=== PATIENT | female | born 1940 | race Caucasian/White ===

== ENCOUNTER 2017-03-24 16:05 | Emergency (ER) | payer MEDICARE ==
--- NOTE | 2017-03-24 19:36 | RAD ---
HISTORY: 2 weeks of right upper quadrant pain COMPARISONS: None TECHNIQUE: Multiple transverse and longitudinal ultrasound images were obtained of the right upper quadrant. FINDINGS: LIVER: The liver is normal in dimensions and echogenicity. Normal hepatic and portal venous blood flow is duplicated with color flow imaging. There is no gross intrahepatic biliary duct dilatation. GALLBLADDER AND EXTRAHEPATIC BILIARY DUCT: At the nondependent portion of the proximal gallbladder there is a 6 mm echogenic avascular focus that does not appear to be mobile. Otherwise there are no intraluminal filling defects consistent with gallstones are iliac artery sludge. There is no pericholecystic fluid or gallbladder wall thickening. The common bile duct measures a maximum diameter of 8 mm. PANCREAS: The portions of the pancreas not obscured by bowel gas are normal in appearance. RIGHT KIDNEY: Along the superior lateral margin of the right kidney there is a heterogeneously echogenic and avascular structure measuring 4 x 4 0.1 x 4.4 cm. At the medial superior margin of the right kidney there is an avascular and anechoic structure measuring 7.2 x 2.8 x 3.7 cm. The kidney is otherwise normal in size and itself exhibits normal echogenicity. AORTA AND IVC: The visualized portions are normal in appearance and not pathologically dilated. IMPRESSION: 1. SONOGRAPHIC FINDINGS ARE MOST CONSISTENT WITH ADENOMYOMATOSIS OR POLYPS. 2. TOP NORMAL DIAMETER OF THE COMMON BILE DUCT WITHOUT IDENTIFICATION OF GALLSTONES OR ACUTE INFLAMMATORY CHANGE OF THE GALLBLADDER. 3. THERE ARE 2 AVASCULAR STRUCTURES ADJACENT TO THE RIGHT KIDNEY WITH MOSTLY BENIGN SONOGRAPHIC FEATURES. THE ETIOLOGY IS UNCLEAR ON ULTRASOUND.
[2017-03-24] MEDS ORDERED: Ondansetron INJ* 2 MG/ML VIAL IV ONE (19:54)
[2017-03-24] MEDS ORDERED: NS 0.9% 1000 ML* 1,000 ML IV ONE (19:55)
[2017-03-24] MEDS ORDERED: Ketorolac INJ* 30 MG/ML 1 ML VIAL IV PUSH ONE (19:55)
[2017-03-24 19:56] LABS: Hematocrit 45 % (35-47); Hemoglobin 15.2 g/dl (12.0-16.0); Mean Corpuscular HGB Conc 33 g/dl (31-36); Mean Corpuscular Hemoglobin 28 pg (27-31); Mean Corpuscular Volume 84 fL (80-97); Mean Platelet Volume 8 um3 (7.4-10.4); Red Blood Count 5.42 10^6/ul (4.0-5.4); Red Cell Distribution Width 14 % (10.5-15); White Blood Count 14.1 10^3/ul (3.5-10.8)
[2017-03-24 20:13] LABS: BUN/Creatinine Ratio 19.5 (8-20); Calcium 9.3 mg/dL (8.6-10.3); EGFR African American 87.4 (>60); Globulin 3.5 g/dL (2-4); Potassium 3.6 mmol/L (3.5-5.0); Total Bilirubin 0.3 mg/dL (0.2-1.0); Total Protein 7.5 g/dL (6.4-8.9)
[2017-03-24 20:13] LABS: Urine Bacteria Absent (Absent); Urine Bilirubin Negative (Negative); Urine Glucose Negative (Negative); Urine Nitrite Negative (Negative)
--- NOTE | 2017-03-24 21:53 | RAD ---
CLINICAL HISTORY: Right-sided flank pain COMPARISON: None TECHNIQUE: Noncontrast CT examination of the abdomen and pelvis from the lung bases through the initial tuberosities. FINDINGS: VISUALIZED LUNG BASES: There is a small to moderate right lung base pleural effusion. There is compressive atelectasis involving the right lower lobe. ABDOMEN AND PELVIS: Evaluation of the solid organs and vasculature is limited without intravenous contrast. The liver, spleen and pancreas are grossly normal in appearance. The gallbladder is normal. Replacing much of the right adrenal gland is a low-density mass measuring 3.7 x 4.5 cm in the axial plane and 4.2 cm in the cephalocaudal projection. The Hounsfield unit measures under 10 indicating an adenoma versus lipoma. The left kidney is normal in appearance without focal mass, calcification or signs of hydronephrosis. At the lower pole of the right kidney is a 2 mm calcification. There is no significant right-sided hydronephrosis. Evaluation of the gastrointestinal tract is limited without oral contrast. The small and large bowel are not distended.The patient's normal appendix is identified in the right lower quadrant measuring 5 mm in diameter with a small amount of gas in the lumen (coronal image 52). There are scattered diverticula throughout the colon becoming more concentrated at the descending colon and even more so in the rectosigmoid colon. There is no definite colonic wall thickening or pericolonic inflammatory change of the mesenteric fat. Between the right kidney and IVC is a fluid density cyst measuring 3.9 x 4.1 cm in the axial plane and nearly 6 cm in cephalocaudal projection. The origin of this cyst is not clear. Otherwise there is no gross retroperitoneal or mesenteric lymphadenopathy. Uterus is surgically absent. The mildly calcified abdominal aorta and iliac arteries are normal in course and diameter. Degenerative change of the lower thoracic spine includes loss of intervertebral disc height, mild endplate sclerosis and marginal osteophyte formation. Less severe degenerative changes noted at the lower lumbar spine as well.There are no sinister bone lesions. IMPRESSION: 1. Moderate right-sided pleural effusion with compressive atelectasis. 2. There is a low-density 4.5 cm mass replacing much of the right adrenal gland. The low density Hounsfield units measuring less than 10 indicates, but do not prove, a benign process such as adenomyoma or lipoma. If clinically warranted further characterization could be made with either [address] of the abdomen according to the adrenal protocol or with contrast-enhanced MRI of the abdomen. 3. Fluid density cyst between the right kidney and IVC just anterior to the retroperitoneum of unclear origin and with benign CT characteristics. 4. Right lower pole punctate calcification without signs of urinary obstruction. 5. Diverticulosis without acute inflammatory change. 6. Additional chronic, degenerative and postsurgical changes described in body the report unlikely to be directly related to the patient's current presentation.
[2017-03-24] MEDS ORDERED: Ciprofloxacin TAB* 500 MG PO ONE (22:20)
--- NOTE | 2017-03-24 22:26 | ED ---
GI/ HPI - HPI Summary HPI Summary: 76F presents with right sided abdominal pain for 2 weeks. She admits to nausea but denies any vomiting. denies any chest pain or SOB. no fever. no pain with urination, frequency, urgency, hematuria. sates pain is greatest in RUQ but radiates between shoulder blades but also has flank pain. no diarrhea or constipation. has had appendix and uterus removed. ibuprofen has been helping. no history of gallstones. pain is intermittent. - History of Current Complaint Chief Complaint: EDAbdPain Time Seen by Provider: 03/24/17 18:57 Stated Complaint: RT SIDED ABD PAIN/V/N Pain Intensity: 8 - Allergy/Home Medications Allergies/Adverse Reactions: Allergies Allergy/AdvReac Type Severity Reaction Status Date / Time Chlorpromazine Allergy Agitation Verified 03/24/17 16:13 [From Thorazine] PMH/Surg Hx/FS Hx/Imm Hx Endocrine/Hematology History: Denies: Hx Anticoagulant Therapy, Hx Diabetes Cardiovascular History: Reports: Hx Hypertension Infectious Disease History: No Infectious Disease History: Denies: Traveled Outside the [place] in Last 30 Days - Family History Known Family History: Negative: Diabetes - Social History Alcohol Use: Occasionally Substance Use Type: Reports: None Smoking Status (MU): Former Smoker Review of Systems Negative: Fever Negative: Chest Pain Negative: Shortness Of Breath Positive: Abdominal Pain, Nausea. Negative: Vomiting, Diarrhea All Other Systems Reviewed And Are Negative: Yes Physical Exam Triage Information Reviewed: Yes Vital Signs On Initial Exam: Initial Vitals Temp Pulse Resp BP Pulse Ox 98.8 F 85 20 138/110 96 03/24/17 16:10 03/24/17 16:10 03/24/17 16:10 03/24/17 16:10 03/24/17 16:10 Vital Signs Reviewed: Yes Appearance: Positive: Well-Appearing Skin: Positive: Warm, Dry Head/Face: Positive: Normal Head/Face Inspection Eyes: Positive: Normal, EOMI, ROBERT, Conjunctiva Clear ENT: Positive: Normal ENT inspection, Pharynx normal, TMs normal Respiratory/Lung Sounds: Positive: Clear to Auscultation, Breath Sounds Present Cardiovascular: Positive: Normal, RRR Abdomen Description: Positive: CVA Tenderness (R), Other: - tenderness RUQ, neg rebound, neg galileo Bowel Sounds: Positive: Present Psychiatric: Positive: Normal Diagnostics - Vital Signs Vital Signs Temp Pulse Resp BP Pulse Ox 03/24/17 17:55 98.6 F 86 20 180/79 96 03/24/17 16:10 98.8 F 85 20 138/110 96 - Laboratory Lab Results: Lab Results 03/24/17 03/24/17 03/24/17 Range/Units 19:45 19:45 19:45 WBC 14.1 H (3.5-10.8) 10^3/ul RBC 5.42 H (4.0-5.4) 10^6/ul Hgb 15.2 (12.0-16.0) g/dl Hct 45 (35-47) % MCV 84 (80-97) fL MCH 28 (27-31) pg MCHC 33 (31-36) g/dl RDW 14 (10.5-15) % Plt Count 404 (150-450) 10^3/ul MPV 8 (7.4-10.4) um3 Neut % (Auto) 66.0 (38-83) % Lymph % (Auto) 22.4 L (25-47) % [place] % (Auto) 9.4 H (1-9) % Eos % (Auto) 1.3 (0-6) % Baso % (Auto) 0.9 (0-2) % Absolute Neuts (auto) 9.3 H (1.5-7.7) 10^3/ul Absolute Lymphs (auto) 3.2 (1.0-4.8) 10^3/ul Absolute Monos (auto) 1.3 H (0-0.8) 10^3/ul Absolute Eos (auto) 0.2 (0-0.6) 10^3/ul Absolute Basos (auto) 0.1 (0-0.2) 10^3/ul Absolute Nucleated RBC 0.01 10^3/ul Nucleated RBC % 0.1 Sodium 138 (133-145) mmol/L Potassium 3.6 (3.5-5.0) mmol/L Chloride 102 (101-111) mmol/L Carbon Dioxide 26 (22-32) mmol/L Anion Gap 10 (2-11) mmol/L BUN 16 (6-24) mg/dL Creatinine 0.82 (0.51-0.95) mg/dL Est GFR ( Amer) 87.4 (>60) Est GFR (Non-Af Amer) 68.0 (>60) BUN/Creatinine Ratio 19.5 (8-20) Glucose 95 (70-100) mg/dL Lactic Acid 1.2 (0.5-2.0) mmol/L Calcium 9.3 (8.6-10.3) mg/dL Total Bilirubin 0.30 (0.2-1.0) mg/dL AST 13 (13-39) U/L ALT 17 (7-52) U/L Alkaline Phosphatase 76 (34-104) U/L Troponin I 0.00 (<0.04) ng/mL C-React Prot High Sens 18.95 mg/L Total Protein 7.5 (6.4-8.9) g/dL Albumin 4.0 (3.2-5.2) g/dL Globulin 3.5 (2-4) g/dL Albumin/Globulin Ratio 1.1 (1-3) Lipase 23 (11.0-82.0) U/L Urine Color Urine Appearance Urine pH (5-9) Ur Specific [place] (1.010-1.030) Urine Protein (Negative) Urine Ketones (Negative) Urine Blood (Negative) Urine Nitrate (Negative) Urine Bilirubin (Negative) Urine Urobilinogen (Negative) Ur Leukocyte Esterase (Negative) Urine WBC (Auto) (Absent) Urine RBC (Auto) (Absent) Ur Squamous Epith Cells (Absent) Urine Bacteria (Absent) Urine Glucose (Negative) 03/24/17 Range/Units 19:50 WBC (3.5-10.8) 10^3/ul RBC (4.0-5.4) 10^6/ul Hgb (12.0-16.0) g/dl Hct (35-47) % MCV (80-97) fL MCH (27-31) pg MCHC (31-36) g/dl RDW (10.5-15) % Plt Count (150-450) 10^3/ul MPV (7.4-10.4) um3 Neut % (Auto) (38-83) % Lymph % (Auto) (25-47) % [place] % (Auto) (1-9) % Eos % (Auto) (0-6) % Baso % (Auto) (0-2) % Absolute Neuts (auto) (1.5-7.7) 10^3/ul Absolute Lymphs (auto) (1.0-4.8) 10^3/ul Absolute Monos (auto) (0-0.8) 10^3/ul Absolute Eos (auto) (0-0.6) 10^3/ul Absolute Basos (auto) (0-0.2) 10^3/ul Absolute Nucleated RBC 10^3/ul Nucleated RBC % Sodium (133-145) mmol/L Potassium (3.5-5.0) mmol/L Chloride (101-111) mmol/L Carbon Dioxide (22-32) mmol/L Anion Gap (2-11) mmol/L BUN (6-24) mg/dL Creatinine (0.51-0.95) mg/dL Est GFR ( Amer) (>60) Est GFR (Non-Af Amer) (>60) BUN/Creatinine Ratio (8-20) Glucose (70-100) mg/dL Lactic Acid (0.5-2.0) mmol/L Calcium (8.6-10.3) mg/dL Total Bilirubin (0.2-1.0) mg/dL AST (13-39) U/L ALT (7-52) U/L Alkaline Phosphatase (34-104) U/L Troponin I (<0.04) ng/mL C-React Prot High Sens mg/L Total Protein (6.4-8.9) g/dL Albumin (3.2-5.2) g/dL Globulin (2-4) g/dL Albumin/Globulin Ratio (1-3) Lipase (11.0-82.0) U/L Urine Color Yellow Urine Appearance Clear Urine pH 7.0 (5-9) Ur Specific [place] 1.014 (1.010-1.030) Urine Protein Negative (Negative) Urine Ketones Trace H (Negative) Urine Blood 1+ H (Negative) Urine Nitrate Negative (Negative) Urine Bilirubin Negative (Negative) Urine Urobilinogen Negative (Negative) Ur Leukocyte Esterase 3+ H (Negative) Urine WBC (Auto) 3+(>20/hpf) H (Absent) Urine RBC (Auto) 1+(3-5/hpf) H (Absent) Ur Squamous Epith Cells Present H (Absent) Urine Bacteria Absent (Absent) Urine Glucose Negative (Negative) Result Diagrams: 03/24/17 19:45 03/24/17 19:45 Lab Statement: Any lab studies that have been ordered have been reviewed, and results considered in the medical decision making process. - CT abd CT Interpretation: Positive (See Comments) - IMPRESSION: 1. Moderate right- sided pleural effusion with compressive atelectasis. 2. There is a low-density 4.5 cm mass replacing much of the right adrenal gland. The low density Hounsfield units measuring less than 10 indicates, but do not prove, a benign process such as adenomyoma or lipoma. If clinically warranted further characterization could be made with either [address] of the abdomen according to the adrenal protocol or with contrast-enhanced MRI of the abdomen. 3. Fluid density cyst between the right kidney and IVC just anterior to the retroperitoneum of unclear origin and with benign CT characteristics. 4. Right lower pole punctate calcification without signs of urinary obstruction. 5. Diverticulosis without acute inflammatory change. 6. Additional chronic, degenerative and postsurgical changes described in body the report unlikely to be directly related to the patient's current presentation. CT Interpretation Completed By: Radiologist - Ultrasound No standard instances Ultrasound Interpretation: Positive (See Comments) - 1. SONOGRAPHIC FINDINGS ARE MOST CONSISTENT WITH ADENOMYOMATOSIS OR POLYPS. 2. TOP NORMAL DIAMETER OF THE COMMON BILE DUCT WITHOUT IDENTIFICATION OF GALLSTONES OR ACUTE INFLAMMATORY CHANGE OF THE GALLBLADDER. 3. THERE ARE 2 AVASCULAR STRUCTURES ADJACENT TO THE RIGHT KIDNEY WITH MOSTLY BENIGN SONOGRAPHIC FEATURES. THE ETIOLOGY IS UNCLEAR ON ULTRASOUND. Ultrasound Interpretation Completed By: Radiologist CASEY Course/Dx - Course Course Of Treatment: 76F presents with right sided abdominal pain for 2 weeks. She admits to nausea but denies any vomiting. denies any chest pain or SOB. no fever. no pain with urination, frequency, urgency, hematuria. sates pain is greatest in RUQ but radiates between shoulder blades but also has flank pain. no diarrhea or constipation. has had appendix and uterus removed. ibuprofen has been helping. no history of gallstones. pain is intermittent. on exam right sided CVA tenderness, RUQ pain, neg lama. wbc 14, LFTs normal. u/a shows leuko and wbc. ekg normal. u/s shows polyp in gallbladder but no dilation. CT shows pleural effusion and cyst near kidney. discussed case extensively with dr perry said talk to hospitalists about pleural effusion. dr perry said can see surgery as outpatient for gallbladder. discussed with patient could by pyelo/uti, plerual effusion vs polyp pain. patient does not want to be admitted so did not talk with hospitalist. will treat with cipro for pyelo and have follow up with surgery. patient understands and agrees with plan. - Diagnoses Differential Diagnoses - Female: Cholecystitis, Pyelonephritis, Urinary Tract Infection, Ureteral Calculi, Other - polyp Provider Diagnoses: Gall bladder polyp, Pyelonephritis, Pleural effusion Discharge - Discharge Plan Condition: Good Disposition: HOME Prescriptions: Ciprofloxacin TAB* [Cipro 500 MG TAB*] 500 mg PO BID #27 tab Ondansetron ODT TAB* [Zofran 4 MG Odt TAB*] 4 mg PO Q6H PRN #12 tab.odt PRN Reason: Nausea Patient Education Materials: Kidney Infection (ED) Referrals: Yvette Londono MD [Primary Care Provider] - Malik Santoyo MD [Medical Doctor] - Additional Instructions: Take antibiotic twice a day for 14 days, starting tomorrow Drink plenty of water Take zofran every 6 hours for nausea Follow up with surgery Follow up with primary Take Tylenol or ibuprofen every 6 hours as needed for pain and fever Return to ED if develop severe vomiting, chest pain, shortness of breath, or any new or worsening symptoms
[2017-03-24 22:40] VITALS: BP 141/81
== END 2017-03-24 22:39 | disposition home or self-care (01) ==
LOC: ED 16:05
DX: K82.4 Cholesterolosis of gallbladder (principal); N12 Tubulo-interstitial nephritis, not specified as acute or chronic; J90 Pleural effusion, not elsewhere classified; Z87.891 Personal history of nicotine dependence; I10 Essential (primary) hypertension
CPT/HCPCS: 36415; 74176; 76705; 80053; 81003; 81015; 83605; 83690; 84484; 85025; 86141; 87086; 93005; 96360; 96374; 96375; 99282; A9270-GY; J1885; J2405

== ENCOUNTER 2017-04-08 03:39 | Emergency (ER) | payer MEDICARE ==
[2017-04-08] MEDS ORDERED: NS 0.9% 1000 ML* 1,000 ML IV ONE (04:40)
[2017-04-08 06:04] LABS: Hematocrit 41 % (35-47); Hemoglobin 13.8 g/dl (12.0-16.0); Mean Corpuscular HGB Conc 34 g/dl (31-36); Mean Corpuscular Hemoglobin 28 pg (27-31); Mean Corpuscular Volume 82 fL (80-97); Mean Platelet Volume 8 um3 (7.4-10.4); Red Blood Count 4.97 10^6/ul (4.0-5.4); Red Cell Distribution Width 14 % (10.5-15)
[2017-04-08 06:16] LABS: Albumin 3.6 g/dL (3.2-5.2); BUN/Creatinine Ratio 17.3 (8-20); Calcium 8.9 mg/dL (8.6-10.3); EGFR African American 88.6 (>60); EGFR Non-African American 68.9 (>60); Globulin 3.2 g/dL (2-4); Potassium 3.5 mmol/L (3.5-5.0); Total Bilirubin 0.4 mg/dL (0.2-1.0); Total Protein 6.8 g/dL (6.4-8.9)
[2017-04-08 06:18] LABS: Troponin I 0.01 ng/mL (<0.04)
[2017-04-08] MEDS ORDERED: NS 0.9% 1000 ML* 1,000 ML IV SCH (06:45)
--- NOTE | 2017-04-08 06:55 | ED ---
Nicki Alegria Thomas, scribed for John Khan on 04/08/17 at 0453 . Complex/Multi-Sys Presentation - HPI Summary HPI Summary: The pt is a 76 y/o F presenting to the ED c/o decreased urine production, weakness, sweats, and chills. His symptoms began earlier today. She says that she feels dehydrated. Pt denies urinary urgency, CP, abd pain, SOB, and cough. She was recently diagnosed with lung cancer with pleural effusion four days ago. She has an appointment today, 04/08/17, in [facility] for further workup and management. The patient is accompanied by her . - History Of Current Complaint Chief Complaint: EDGeneral Time Seen by Provider: 04/08/17 04:33 Hx Obtained From: Patient, Family/Stove Refinisher - present Onset/Duration: Lasting Hours - onset of symptoms earlier today, Still Present Timing: Constant Aggravating Factor(s): None. Alleviating Factor(s): None. Associated Signs And Symptoms: Positive: Other - Decreased urine production, weakness, sweats, and chills; NEGATIVE: urinary urgency, CP, abd pain, SOB, and cough. - Allergies/Home Medications Allergies/Adverse Reactions: Allergies Allergy/AdvReac Type Severity Reaction Status Date / Time Chlorpromazine Allergy Agitation Verified 04/08/17 03:46 [From Thorazine] PMH/Surg Hx/FS Hx/Imm Hx Previously Healthy: No Endocrine/Hematology History: Denies: Hx Anticoagulant Therapy, Hx Diabetes Cardiovascular History: Reports: Hx Hypertension EENT History: Denies: Hx Deafness - Surgical History Surgery Procedure, Year, and Place: Fluid drainage from chest Infectious Disease History: No Infectious Disease History: Denies: Traveled Outside the [place] in Last 30 Days - Family History Known Family History: Negative: Diabetes - Social History Alcohol Use: Occasionally Hx Substance Use: No Substance Use Type: Reports: None Hx Tobacco Use: Yes Smoking Status (MU): Former Smoker Review of Systems Positive: Chills, Other - Sweats Negative: Chest Pain Negative: Shortness Of Breath, Cough Negative: Abdominal Pain Positive: other - Decreased urine production; NEGATIVE: urinary urgency Positive: Weakness - generalized All Other Systems Reviewed And Are Negative: Yes Physical Exam - Summary Physical Exam Summary: Appearance: Well appearing, no pain distress. Skin: Warm, dry, reflects adequate perfusion. Head/face: Normal. Eyes: EOMI, ROBERT. ENT: Dry mucous membranes. Neck: Supple, nontender. Respiratory: CTA, breath sounds present. Cardiovascular: RRR, pulses symmetrical. Abdomen: Nontender, soft. Bowel: Present. Musculoskeletal: Normal, strength/ROM intact. Neuro: Normal, sensory motor intact, A&Ox3. Triage Information Reviewed: Yes Vital Signs On Initial Exam: Initial Vitals Temp Pulse Resp BP Pulse Ox 98.7 F 81 14 174/85 94 04/08/17 03:41 04/08/17 03:41 04/08/17 03:41 04/08/17 03:41 04/08/17 03:41 Vital Signs Reviewed: Yes Diagnostics - Vital Signs Vital Signs Temp Pulse Resp BP Pulse Ox 04/08/17 03:41 98.7 F 81 14 174/85 94 - Laboratory Lab Results: Lab Results 04/08/17 04/08/17 04/08/17 Range/Units 05:35 05:35 05:35 WBC 15.0 H (3.5-10.8) 10^3/ul RBC 4.97 (4.0-5.4) 10^6/ul Hgb 13.8 (12.0-16.0) g/dl Hct 41 (35-47) % MCV 82 (80-97) fL MCH 28 (27-31) pg MCHC 34 (31-36) g/dl RDW 14 (10.5-15) % Plt Count 443 (150-450) 10^3/ul MPV 8 (7.4-10.4) um3 Neut % (Auto) 71.4 (38-83) % Lymph % (Auto) 17.4 L (25-47) % [place] % (Auto) 8.0 (1-9) % Eos % (Auto) 2.4 (0-6) % Baso % (Auto) 0.8 (0-2) % Absolute Neuts (auto) 10.7 H (1.5-7.7) 10^3/ul Absolute Lymphs (auto) 2.6 (1.0-4.8) 10^3/ul Absolute Monos (auto) 1.2 H (0-0.8) 10^3/ul Absolute Eos (auto) 0.4 (0-0.6) 10^3/ul Absolute Basos (auto) 0.1 (0-0.2) 10^3/ul Absolute Nucleated RBC 0.01 10^3/ul Nucleated RBC % 0 INR (Anticoag Therapy) 0.98 (0.89-1.11) APTT 32.2 (26.0-36.3) seconds Sodium 136 (133-145) mmol/L Potassium 3.5 (3.5-5.0) mmol/L Chloride 104 (101-111) mmol/L Carbon Dioxide 26 (22-32) mmol/L Anion Gap 6 (2-11) mmol/L BUN 14 (6-24) mg/dL Creatinine 0.81 (0.51-0.95) mg/dL Est GFR ( Amer) 88.6 (>60) Est GFR (Non-Af Amer) 68.9 (>60) BUN/Creatinine Ratio 17.3 (8-20) Glucose 114 H (70-100) mg/dL Calcium 8.9 (8.6-10.3) mg/dL Total Bilirubin 0.40 (0.2-1.0) mg/dL AST 10 L (13-39) U/L ALT 12 (7-52) U/L Alkaline Phosphatase 56 (34-104) U/L Troponin I 0.01 (<0.04) ng/mL Total Protein 6.8 (6.4-8.9) g/dL Albumin 3.6 (3.2-5.2) g/dL Globulin 3.2 (2-4) g/dL Albumin/Globulin Ratio 1.1 (1-3) Lipase 25 (11.0-82.0) U/L Result Diagrams: 04/08/17 05:35 04/08/17 05:35 Lab Statement: Any lab studies that have been ordered have been reviewed, and results considered in the medical decision making process. - Radiology CXR Xray Interpretation: No Acute Changes - Negative for acute disease Radiology Interpretation Completed By: ED Physician - EKG 05:23 Cardiac Rate: NL - 79 BPM EKG Rhythm: Sinus Rhythm Complex Multi-Symp Course/Dx Assessment/Plan: Patient presents with decreased urine production, weakness, sweats, and chills. She has a recent diagnosis of Lung CA. EKG, CXR, and bloodwork obtained. Signed out to next ED physician at shift change. - Diagnoses Differential Diagnoses/HQI/PQRI: Sepsis, Urinary Tract Infection Provider Diagnoses: Weakness, Urinary frequency, Lung cancer Discharge - Discharge Plan Condition: Fair Disposition: OTHER Discharge Disposition Comment: Sign out to next physician at shift change Referrals: Yvette Londono MD [Primary Care Provider] - The documentation as recorded by the Nicki earl Thomas accurately reflects the service I personally performed and the decisions made by Erin molina Emmanuel.
[2017-04-08 08:03] LABS: Urine Bacteria Absent (Absent); Urine Bilirubin Negative (Negative); Urine Glucose Negative (Negative); Urine Nitrite Negative (Negative)
--- NOTE | 2017-04-08 08:50 | RAD ---
INDICATION: Dehydration and weakness COMPARISON: CT of the abdomen and pelvis that shows a moderate right lung base pleural effusion. TECHNIQUE: Single AP portable view of the chest was obtained. FINDINGS: Image quality is compromised due to the relative inferiority of a portable chest x-ray. The heart and mediastinum exhibit normal size and contour. There is faint density obscuring the right lung base and causing right costophrenic angle blunting. The lungs are otherwise adequately aerated. Visualized bones are normal for the patient's age. IMPRESSION: Density overlying the right lower lung could be residual pleural effusion and/or consolidation.
[2017-04-08 08:58] VITALS: BP 164/80
--- NOTE | 2017-04-09 08:34 | ED ---
Richie Alegria Angela, scribed for Jayce Uribe MD on 04/08/17 at 0811 . Progress - Progress Note Progress Note: The pt is a 76 y/o F presenting to the ED c/o decreased urine production, weakness, sweats, and chills. This pt was signed out by Dr. Uribe, pending disposition, awaiting UA. Pt has an appointment today in [place], [place] for pleural effusion. On re-eval at 08:16 VITAL SIGNS: Reviewed. GENERAL: Patient is a well-developed and nourished female who is lying comfortable in the stretcher. Patient is not in any acute respiratory distress. HEAD AND FACE: No signs of trauma. No ecchymosis, hematomas or skull depressions. No sinus tenderness. EYES: PERRLA, EOMI x 2, No injected conjunctiva, no nystagmus. EARS: Hearing grossly intact. Ear canals and tympanic membranes are within normal limits. MOUTH: Oropharynx within normal limits. NECK: Supple, trachea is midline, no adenopathy, no JVD, no carotid bruit, no c- spine tenderness, neck with full ROM. CHEST: Symmetric, no tenderness at palpation LUNGS: Clear to auscultation bilaterally. No wheezing or crackles. CVS: Regular rate and rhythm, S1 and S2 present, no murmurs or gallops appreciated. ABDOMEN: Soft, non-tender. No signs of distention. No rebound no guarding, and no masses palpated. Bowel sounds are normal. EXTREMITIES: FROM in all major joints, no edema, no cyanosis or clubbing. NEURO: Alert and oriented x 3. No acute neurological deficits. Speech is normal and follows commands. SKIN: Dry and warm Pt will be discharged to home in stable condition with a diagnosis of dehydration. Re-Evaluation - Re-Evaluation First Eval Re-Evaluation Time: 08:16 Comment: Pt reports she is feeling better. Course/Dx - Course Course Of Treatment: The pt is a 76 y/o F presenting to the ED c/o decreased urine production, weakness, sweats, and chills. This pt was signed out by Dr. Uribe, pending disposition, awaiting UA. Test results show WBC of 15, glucose of 114. UA is contaminated. Recommendation from Dr. Khan is to discharge the pt home if results are all negative. Pt will be discharged to home to go to her appointment in [place] for pleural effusion. Pt is hemodynamically stable, alert and oriented x3. - Diagnoses Provider Diagnoses: Dehydration The documentation as recorded by the Richie earl Angela accurately reflects the service I personally performed and the decisions made by me, Jayce Uribe MD.
== END 2017-04-08 09:12 ==
LOC: ED 03:39
DX: E86.0 Dehydration (principal); R53.1 Weakness; R35.0 Frequency of micturition; C34.31 Malignant neoplasm of lower lobe, right bronchus or lung; I10 Essential (primary) hypertension; Z87.891 Personal history of nicotine dependence
CPT/HCPCS: 36415; 71010; 80053; 81003; 81015; 83690; 84484; 85025; 85610; 85730; 87086; 93005; 96360; 96361; 99283

== ENCOUNTER 2017-10-11 10:15 | Emergency (ER) | payer MEDICARE ==
[2017-10-11 11:19] LABS: ABS Basophils 0.1 10^3/ul (0-0.2); ABS Eosinophils 0.2 10^3/ul (0-0.6); ABS Lymphocytes 1.5 10^3/ul (1.0-4.8); ABS Monocytes 1.4 10^3/ul (0-0.8); ABS Nucleated RBC 0 10^3/ul; Eosinophil % 1.3 % (0-6); Hematocrit 38 % (35-47); Hemoglobin 12.5 g/dl (12.0-16.0); Lymphocyte % 12.5 % (25-47); Mean Corpuscular HGB Conc 33 g/dl (31-36); Mean Corpuscular Hemoglobin 26 pg (27-31); Mean Corpuscular Volume 78 fL (80-97); Nucleated Red Blood Cells % 0; Platelet Count 486 10^3/ul (150-450); Red Blood Count 4.87 10^6/ul (4.0-5.4); Red Cell Distribution Width 16 % (10.5-15); White Blood Count 12.1 10^3/ul (3.5-10.8)
[2017-10-11 11:37] LABS: EGFR Non-African American 99.4 (>60)
--- NOTE | 2017-10-11 11:49 | RAD ---
HISTORY: Weakness COMPARISONS: April 08, 2017 VIEWS: 4: Frontal dual-energy and lateral views of the chest. FINDINGS: CARDIOMEDIASTINAL SILHOUETTE: The cardiomediastinal silhouette is normal. GLEN: The glen are normal. PLEURA: There is a loculated right pleural effusion. LUNG PARENCHYMA: There is patchy alveolar desiccation of the right lower lung. ABDOMEN: The upper abdomen is clear. There is no subphrenic gas. BONES AND SOFT TISSUES: There is post surgical change to the right hemithorax and sternum. OTHER: None. IMPRESSION: 1. POST SURGICAL CHANGE. 2. LOCULATED RIGHT PLEURAL EFFUSION. 3. RIGHT BASILAR ATELECTASIS VERSUS CONSOLIDATION
[2017-10-11] MEDS ORDERED: Levofloxacin 750 MG IVPREMIX(* 750 MG/150 ML BAG IVPB ONE (11:51)
[2017-10-11] MEDS ORDERED: Iohexol 300* (CONTRAST) 10 ML SDV IV ONE ×2 (12:38→13:32)
--- NOTE | 2017-10-11 13:32 | RAD ---
CLINICAL HISTORY: Diffuse abdominal pain COMPARISON: March 24, 2017, chest x-ray dated October 11, 2017. TECHNIQUE: Multiple contiguous axial CT scans were obtained of the abdomen and pelvis after the administration of intravenous contrast. Coronal and sagittal multiplanar reformations are submitted for review. Oral contrast was not administered. Delayed images were obtained through the abdomen and pelvis. FINDINGS: LUNG BASES: There is post surgical change to the right hemithorax. The loculated pleural effusion noted on chest x-ray has the appearance of multiple centrally necrotic pleural-based masses measuring up to 8.6 cm in size. LIVER: There is a bilobed low-attenuation lesion of the left lobe of liver along the ligamentum teres hepatis, measuring approximately 2.6 x 1.7 x 1.9 cm in size. BILE DUCTS: There is no intrahepatic or extrahepatic biliary dilatation. GALLBLADDER: The gallbladder is normal, without pericholecystic inflammatory change. PANCREAS: The pancreas is normal, without mass or ductal dilatation. SPLEEN: Normal in size and appearance. UPPER GI TRACT: Evaluation of the gastrointestinal tract is limited by incomplete gastric distention. The upper GI tract is unremarkable. SMALL BOWEL AND MESENTERY: The small bowel is normal in contour, course, and caliber. There is no obstruction or dilatation. COLON: The colon is normal in contour, course, caliber. There is no pericolonic inflammatory change. ADRENALS: There is a 4.5 cm nodule of the right adrenal gland. There is heterogeneous enhancement. This is similar in size to the March 24, 2017 examination. KIDNEYS: The kidneys are normal in shape, size, contour, and axis. There is no hydronephrosis or nephrolithiasis. BLADDER: The bladder is smooth in contour. PELVIC ORGANS: The pelvic organs are not visualized. AORTA: There is calcific atherosclerotic disease of the abdominal aorta and its branches, without aneurysmal dilatation IVC: Unremarkable LYMPH NODES: There is no lymphadenopathy by size criteria. ABDOMINAL WALL: There is no evidence for abdominal wall hernia. BONES AND SOFT TISSUES: Degenerative changes are noted of the spine. As noted above, there is post surgical change to the right hemithorax. OTHER: There is a retroperitoneal cystic lesion medial to the right kidney. This measures simple fluid in attenuation, and 6.6] in size. 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 IMPRESSION: 1. THE LOCULATED PLEURAL EFFUSION NOTED ON CHEST X-RAY HAS THE APPEARANCE OF MULTIPLE CENTRALLY NECROTIC PLEURAL-BASED MASSES, CONCERNING FOR NEOPLASM. 2. THERE HAS BEEN INTERVAL DEVELOPMENT OF LOW-ATTENUATION LESION OF THE LEFT LOBE OF LIVER ALONG THE LIGAMENTUM TERES, CONCERNING FOR METASTATIC DISEASE GIVEN THE PRESENCE OF MULTIPLE PLEURAL-BASED MASSES. 3. THERE IS A RIGHT ADRENAL NODULE. 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 GIVEN THE PRESENCE OF MULTIPLE PLEURAL-BASED MASSES, METASTATIC DISEASE TO THE ADRENAL GLAND SHOULD BE CONSIDERED IN THE DIFFERENTIAL. 4. 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 5. ATHEROSCLEROSIS.
[2017-10-11] MEDS ORDERED: HYDROmorphone INJ* 1 MG/ML CARPUJECT SYRINGE IV ONE (13:33)
[2017-10-11] MEDS ORDERED: oxyCODONE/Acetamin 5/325 MG* TAB PO ONE (13:38)
[2017-10-11] MEDS ORDERED: oxyCODONE TAB* 5 MG TAB PO ONE (13:38)
--- NOTE | 2017-10-11 13:55 | RAD ---
HISTORY: Pleural effusion COMPARISONS: Chest x-ray dated October 11, 2017, CT of the abdomen and pelvis dated October 11, 2017 TECHNIQUE: Multiple contiguous axial CT scans of the chest were obtained with intravenous contrast. Coronal and sagittal multiplanar reformations are also submitted for review. FINDINGS: NECK AND THYROID: The lower neck and thyroid are unremarkable. CHEST WALL: The patient is status post thoracotomy with resection of the anterior right hemithorax and placement of fixation plates across the right hemithorax and sternum and left costochondral junctions. HEART AND PERICARDIUM: The heart is unremarkable. AORTA AND PULMONARY VASCULATURE: The aorta and pulmonary vasculature are normal. MEDIASTINUM: There are mildly enlarged pretracheal and right paratracheal lymph nodes to 1.1 cm in short axis. GLEN: There is no hilar lymphadenopathy by size criteria. AIRWAY AND ESOPHAGUS: The airway is unremarkable, without endobronchial filling defect. The esophagus is grossly normal. LUNG PARENCHYMA: The lungs are clear. PLEURA: The loculated pleural effusion noted on chest x-ray corresponds to multiple centrally necrotic pleural-based masses. The largest is noted along the right lower anterior chest measuring 7 x 4 x 4.1 cm in size. UPPER ABDOMEN: As noted on CT of the abdomen and pelvis, there is a right adrenal mass. BONES AND SOFT TISSUES: As noted above, the patient is status post resection of the portion of the right hemithorax with placement of fixation plates. OTHER: None. IMPRESSION: 1. THE LOCULATED PLEURAL EFFUSION NOTED ON CHEST X-RAY CORRESPONDS TO MULTIPLE CENTRALLY NECROTIC PLEURAL-BASED MASSES, MEASURING UP TO 7 CM IN SIZE, MOST CONSISTENT WITH MALIGNANT NEOPLASM. 2. MILDLY ENLARGED MEDIASTINAL LYMPH NODES.
[2017-10-11] MEDS: Ondansetron INJ* 2 MG/ML VIAL IV ONE ×2 (14:22→15:39)
--- NOTE | 2017-10-11 15:19 | ED ---
Nicki Alegria Thomas, scribed for Joesph Mukherjee MD on 10/11/17 at 1034 . Complex/Multi-Sys Presentation - HPI Summary HPI Summary: The patient is a 76 year old female who was discharged from [facility] on after being admitted for pneumonia. When she was discharged, she was put on PO antibiotics. She was able to take these antibiotics on 10/02/17 but stopped taking them from 10/03/17 onward due to nausea and vomiting. Since then, she complains of generalized weakness and fatigue. She complains of abdominal pain. She also complains of right-sided chest wall pain since a surgery on in which some ribs were removed on the right side. She is on oxycodone for her pain. Past medical history includes lung cancer. - History Of Current Complaint Chief Complaint: EDAbdPain Time Seen by Provider: 10/11/17 10:26 Hx Obtained From: Patient Onset/Duration: Lasting Days, Still Present Timing: Constant Severity Currently: Moderate Location: Negative Aggravating Factor(s): None Alleviating Factor(s): None Associated Signs And Symptoms: Positive: Other - Generalized weakness, fatigue, chest wall pain, nasuea, vomiting, abd pain Related History: Recent Hospitalization, Other - Rib removal 06/29/17 - Allergies/Home Medications Allergies/Adverse Reactions: Allergies Allergy/AdvReac Type Severity Reaction Status Date / Time chlorpromazine Allergy Agitation Verified 10/11/17 10:24 [From Thorazine] Home Medications: Home Medications Citalopram TAB* [CeleXA TAB*] 20 mg PO DAILY 10/11/17 [History Confirmed ] Ibuprofen TAB* [Advil TAB*] 200 mg PO Q6H PRN 10/11/17 [History Confirmed ] Lactobacillus Acidophilus* [Culturelle*] 1 cap PO BID 10/11/17 [History Confirmed 10/11/17] Megestrol TAB* [Megace TAB*] 20 mg PO DAILY 10/11/17 [History Confirmed 10/11/17 ] Metoprolol Tartrate TAB* [Lopressor TAB*] 37.5 mg PO BID 10/11/17 [History Confirmed 10/11/17] Nystatin SUSPENSION ORAL SYR* 5 ml PO QID 10/11/17 [History Confirmed 10/11/17] Omeprazole CAP* [Prilosec CAP* 20 MG] 20 mg PO DAILY 10/11/17 [History Confirmed 10/11/17] Ondansetron ODT TAB* [Zofran 4 MG Odt TAB*] 4 mg PO Q8H PRN 10/11/17 [History Confirmed 10/11/17] Polyethylene Glycol 3350* [Miralax*] 17 gm PO DAILY 10/11/17 [History Confirmed 10/11/17] Senna TAB* [Senokot TAB*] 1 tab PO DAILY PRN 10/11/17 [History Confirmed ] amLODIPine TAB* [Norvasc 5 mg TAB*] 10 mg PO DAILY 10/11/17 [History Confirmed 10/11/17] guaiFENesin [Mucinex] 600 mg PO BID PRN 10/11/17 [History Confirmed 10/11/17] oxyCODONE/Acetamin 10/325(NF) [Percocet 10/325 (NF)] 1 tab PO .Q4-6H PRN MDD 4 tabs 10/11/17 [History Confirmed 10/11/17] PMH/Surg Hx/FS Hx/Imm Hx Endocrine/Hematology History: Denies: Hx Anticoagulant Therapy, Hx Diabetes Cardiovascular History: Reports: Hx Hypertension Sensory History: Denies: Hx Deafness - Cancer History Cancer Type, Location and Year: Lung CA - Surgical History Surgery Procedure, Year, and Place: Fluid drainage from chest, rib removal on the right side Infectious Disease History: No Infectious Disease History: Denies: Traveled Outside the [place] in Last 30 Days - Family History Known Family History: Negative: Diabetes - Social History Alcohol Use: Occasionally Hx Substance Use: No Substance Use Type: Reports: None Hx Tobacco Use: Yes Smoking Status (MU): Former Smoker Review of Systems Positive: Fatigue, Other - Generalized weakness. Negative: Fever Positive: Abdominal Pain, Vomiting, Nausea Positive: Other - Chest wall pain All Other Systems Reviewed And Are Negative: Yes Physical Exam - Summary Physical Exam Summary: Appearance: The patient is well-nourished in no acute distress and in no acute pain. Skin: The skin is warm and dry and skin color reflects adequate perfusion. HEENT: The head is normocephalic and atraumatic. The pupils are equal and reactive. The conjunctivae are clear and without drainage. Nares are patent and without drainage. Mouth reveals moist mucous membranes and the throat is without erythema and exudate. The external ears are intact. The ear canals are patent and without drainage. The tympanic membranes are intact. Neck: the neck is supple with full range of motion and non-tender. There are no carotid bruits. There is no neck vein distension. Respiratory: Chest is non-tender. She has crackles in the right base worse than the left. Cardiovascular: Heart is regular rate and rhythm. There is no murmur or rub auscultated. There is no peripheral edema and pulses are symmetrical and equal. Abdomen: The abdomen is soft and non-tender. There are normal bowel sounds heard in all four quadrants and there is no organomegaly palpated. Musculoskeletal: There is no back tenderness noted. Extremities are non-tender with full range of motion. There is good capillary refill. There is no peripheral edema or calf tenderness elicited. Neurological: Patient is alert and oriented to person, place and time. The patient has symmetrical motor strength in all four extremities. Cranial nerves are grossly intact. Deep tendon reflexes are symmetrical and equal in all four extremities. Psychiatric: The patient has an appropriate affect and does not exhibit any anxiety or depression. Triage Information Reviewed: Yes Vital Signs On Initial Exam: Initial Vitals Temp Pulse Resp BP Pulse Ox 98.2 F 84 17 159/74 94 10/11/17 10:24 10/11/17 10:24 10/11/17 10:24 10/11/17 10:24 10/11/17 10:24 Vital Signs Reviewed: Yes Diagnostics - Vital Signs Vital Signs Temp Pulse Resp BP Pulse Ox 10/11/17 10:24 98.2 F 84 17 159/74 94 - Laboratory Lab Results: Lab Results 10/11/17 10/11/17 10/11/17 Range/Units 11:07 11:07 11:07 WBC 12.1 H (3.5-10.8) 10^3/ul RBC 4.87 (4.0-5.4) 10^6/ul Hgb 12.5 (12.0-16.0) g/dl Hct 38 (35-47) % MCV 78 L (80-97) fL MCH 26 L (27-31) pg MCHC 33 (31-36) g/dl RDW 16 H (10.5-15) % Plt Count 486 H (150-450) 10^3/ul MPV 8.0 (7.4-10.4) um3 Neut % (Auto) 74.2 (38-83) % Lymph % (Auto) 12.5 L (25-47) % Troup % (Auto) 11.4 H (0-7) % Eos % (Auto) 1.3 (0-6) % Baso % (Auto) 0.6 (0-2) % Absolute Neuts (auto) 9.0 H (1.5-7.7) 10^3/ul Absolute Lymphs (auto) 1.5 (1.0-4.8) 10^3/ul Absolute Monos (auto) 1.4 H (0-0.8) 10^3/ul Absolute Eos (auto) 0.2 (0-0.6) 10^3/ul Absolute Basos (auto) 0.1 (0-0.2) 10^3/ul Absolute Nucleated RBC 0 10^3/ul Nucleated RBC % 0 Sodium 140 (139-145) mmol/L Potassium 3.9 (3.5-5.0) mmol/L Chloride 105 (101-111) mmol/L Carbon Dioxide 24 (22-32) mmol/L Anion Gap 11 (2-11) mmol/L BUN 18 (6-24) mg/dL Creatinine 0.59 (0.51-0.95) mg/dL Est GFR ( Amer) 127.8 (>60) Est GFR (Non-Af Amer) 99.4 (>60) BUN/Creatinine Ratio 30.5 H (8-20) Glucose 102 H (70-100) mg/dL Lactic Acid 1.8 (0.5-2.0) mmol/L Calcium 9.1 (8.6-10.3) mg/dL Magnesium 2.0 (1.9-2.7) mg/dL Total Bilirubin 0.20 (0.2-1.0) mg/dL AST 8 L (13-39) U/L ALT 12 (7-52) U/L Alkaline Phosphatase 69 (34-104) U/L Troponin I 0.01 (<0.04) ng/mL Total Protein 6.9 (6.4-8.9) g/dL Albumin 3.3 (3.2-5.2) g/dL Globulin 3.6 (2-4) g/dL Albumin/Globulin Ratio 0.9 L (1-3) TSH 2.14 (0.34-5.60) mcIU/mL Result Diagrams: 10/11/17 11:07 10/11/17 11:07 Lab Statement: Any lab studies that have been ordered have been reviewed, and results considered in the medical decision making process. - Radiology CXR Xray Interpretation: No Acute Changes - IMPRESSION: "1. POST SURGICAL CHANGE. 2. LOCULATED RIGHT PLEURAL EFFUSION. 3. RIGHT BASILAR ATELECTASIS VERSUS CONSOLIDATION." Dr. Mukherjee has reviewed this report. Radiology Interpretation Completed By: Radiologist - EKG 10:58 Cardiac Rate: NL EKG Rhythm: Sinus Rhythm - at 81 BPM Ectopy: PACs - Additional Comments Diagnostic Additional Comments: CT ABDOMEN/PELVIS W Interpreted by radiologist. IMPRESSION: 1. THE LOCULATED PLEURAL EFFUSION NOTED ON CHEST X-RAY HAS THE APPEARANCE OF MULTIPLE CENTRALLY NECROTIC PLEURAL-BASED MASSES, CONCERNING FOR NEOPLASM. 2. THERE HAS BEEN INTERVAL DEVELOPMENT OF LOW-ATTENUATION LESION OF THE LEFT LOBE OF LIVER ALONG THE LIGAMENTUM TERES, CONCERNING FOR METASTATIC DISEASE GIVEN THE PRESENCE OFMULTIPLE PLEURAL-BASED MASSES. 3. THERE IS A RIGHT ADRENAL NODULE. 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 GIVEN THE PRESENCE OF MULTIPLE PLEURAL-BASED MASSES, METASTATIC DISEASE TO THE ADRENAL GLAND SHOULD BE CONSIDERED IN THE DIFFERENTIAL. 4. 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 5. ATHEROSCLEROSIS. Interpreted by radiologist. CT CHEST W Interpreted by radiologist. IMPRESSION: 1. THE LOCULATED PLEURAL EFFUSION NOTED ON CHEST X-RAY CORRESPONDS TO MULTIPLE CENTRALLY NECROTIC PLEURAL-BASED MASSES, MEASURING UP TO 7 CM IN SIZE, MOST CONSISTENT WITH MALIGNANT NEOPLASM. 2. MILDLY ENLARGED MEDIASTINAL LYMPH NODES. Dr. Mukherjee has reviewed this report. Re-Evaluation - Re-Evaluation First Eval Re-Evaluation Time: 13:48 Comment: Results discussed. Patient will be transferred to [facility] Course/Dx Course Of Treatment: Ms. Blanca presented with generalized weakness of slow, inexorable onset since her recent D/C 10 days ago from [facility]. She was found to have a loculated effusion, a likely infiltrate and a leukocytocis. I contacted the hospitalist service for admission. They contacted Dr. Sahu who is not property economist for the ED today who felt that we could not handle the patient here. She will require drainage of the loculated effusion and that may need to be performed by a thoracic surgeon. [facility] was contacted where all of her previous care has been and Dr. Zuleta readily agreed to the transfer. - Diagnoses Provider Diagnoses: Pneumonia, Loculated pleural effusion - Physician Notifications Discussed Care Of Patient With: Dr. Zuleta Time Discussed With Above Provider: 13:46 Instructed by Provider To: Transfer - Dr. Zuleta, hospitalist at [facility], accepts the patient for transfer. Discharge - Sign-Out/Discharge Documenting (check all that apply): Discharge/Admit/Transfer - Patient is transferred to [facility] - Discharge Plan Condition: Stable Disposition: TRANS HIGHER LVL OF CARE FAC Discharge Disposition Comment: Patient is transferred to [facility], accepted by hospitalist Dr. Zuleta Referrals: Yvette Londono MD [Primary Care Provider] - - Billing Disposition and Condition Condition: STABLE Disposition: EMTALA The documentation as recorded by the Nicki aerl Thomas accurately reflects the service I personally performed and the decisions made by me, Joesph Mukherjee MD.
[2017-10-11 15:24] VITALS: BP 158/83
[2017-10-11] MEDS ORDERED: Ondansetron INJ* 2 MG/ML VIAL ONE (15:38)
== END 2017-10-11 15:44 | disposition short-term general hospital (02) ==
LOC: ED 10:15
DX: J18.9 Pneumonia, unspecified organism (principal); J90 Pleural effusion, not elsewhere classified; R53.1 Weakness; R53.83 Other fatigue; R07.89 Other chest pain; R11.2 Nausea with vomiting, unspecified; Z87.891 Personal history of nicotine dependence; R59.9 Enlarged lymph nodes, unspecified; Z86.79 Personal history of other diseases of the circulatory system
CPT/HCPCS: 36415; 71046; 71260; 74177; 80053; 83605; 83735; 84443; 84484; 85025; 93005; 96374; 96375; 99284; A9270-GY; J2405; Q9967